=== PATIENT | male | born 1990 | race Caucasian/White ===

== ENCOUNTER 2024-08-23 06:09 | Day surgery (SDC) | payer BC ==
[2024-08-18 16:13] VITALS: BMI 47.5
[2024-08-23] MEDS ORDERED: PROPOFOL 40 ML ONE (06:41)
[2024-08-23] MEDS ORDERED: Sevoflurane 250 ML INH ANEST BOTTLE ONE (06:52)
[2024-08-23] MEDS ORDERED: Lidocaine 1% PF 5 ML VIAL ONE (06:55)
[2024-08-23] MEDS ORDERED: SUGAMMADEX SODIUM 200 MG/2 ML VIAL ONE ×2 (06:57→08:17)
[2024-08-23] MEDS ORDERED: fentaNYL 50 mcg/mL 1 mL Vial ONE (07:28)
[2024-08-23] MEDS ORDERED: Ferric Subsulfate 8 ML TOPICAL SOLN ONE (07:29)
[2024-08-23] MEDS ORDERED: Ondansetron PF 4 MG/2 ML Vial ONE (07:30)
[2024-08-23] MEDS ORDERED: Dexamethasone 20 MG/5 ML VIAL ONE (07:30)
[2024-08-23] MEDS ORDERED: Labetalol HCl 100 MG/20 ML VIAL ONE ×2 (08:01→08:27)
[2024-08-23] MEDS ORDERED: methylPREDNISolone Acetate 40 mg/ml Vial ONE (08:02)
[2024-08-23] MEDS ORDERED: Lidocaine 4% PF 5 ML AMP ONE (08:14)
[2024-08-23] MEDS ORDERED: Hydrocodone-Acetamin 15 ML UDCUP ONE (09:18)
== END 2024-08-23 09:38 | disposition home or self-care (01) ==
LOC: CSHSDC 06:09
PROVIDERS: ATTEND Otolaryngology Plastic Surgery within the Head & Neck
PROC: 0CTQXZZ Resection of Adenoids, External Approach (ICD-10-PCS; principal; 2024-08-23)
PROC: 0CTPXZZ Resection of Tonsils, External Approach (ICD-10-PCS; principal; 2024-08-23)
DX: J35.3 Hypertrophy of tonsils with hypertrophy of adenoids (principal); J35.01 Chronic tonsillitis; I10 Essential (primary) hypertension; J45.909 Unspecified asthma, uncomplicated; F41.9 Anxiety disorder, unspecified; J32.8 Other chronic sinusitis; J34.2 Deviated nasal septum; J34.9 Unspecified disorder of nose and nasal sinuses; G47.33 Obstructive sleep apnea (adult) (pediatric); Z79.899 Other long term (current) drug therapy; Z88.2 Allergy status to sulfonamides
CPT/HCPCS: 88304; J1010; J1100; J2405; J2704; J3010